=== PATIENT | male | born 1945 | race Caucasian/White ===

== ENCOUNTER 2017-02-22 09:27 | Emergency (ER) | payer MEDICARE, OTHER | END 2017-02-22 09:50 | disposition home or self-care (01) | LOC: BURERS 09:27 | DX: L03.113 Cellulitis of right upper limb (principal); J44.9 Chronic obstructive pulmonary disease, unspecified; F17.210 Nicotine dependence, cigarettes, uncomplicated; Z79.899 Other long term (current) drug therapy | CPT/HCPCS: 99283 ==

== ENCOUNTER 2024-05-27 20:00 | Emergency (ER) | payer MEDICARE, BC, OTHER ==
[2024-05-27] MEDS ORDERED: Bacitracin 1 PK ONE (20:38)
[2024-05-27] MEDS ORDERED: Acetaminophen 500 MG TAB ONE (20:39)
[2024-05-27 21:14] LABS: #Eosinophils 0.3 thou/uL (0.0-0.7); #Lymphocytes 1.9 thou/uL (1.20-3.40); #Monocytes 1.1 thou/uL (0.11-0.59); #Neutrophils 9.6 thou/uL (1.40-6.50); %Basophils 0.3 % (0.0-1.0); %Lymphocytes 14.6 % (21.0-51.0); %Monocytes 8.5 % (0.0-10.0); %Neutrophils 74.6 % (42.0-75.0); Hematocrit 41.3 % (42.0-52.0); Hemoglobin 13.7 g/dL (14.0-18.0); Mean Corpuscular HGB CONC 33.3 g/dL (32.0-36.0); Mean Corpuscular Hemoglobin 32.3 pg (27.0-31.0); Mean Corpuscular Volume 97.1 fl (78.0-98.0); Mean Platelet Volume 7.6 fL (7.4-10.4); Platelet Count 153 10x3/uL (130-400); RBC Distribution Width 13.3 % (11.5-14.5); Red Blood Cell (RBC) Count 4.25 mill/uL (4.70-6.10); White Blood Cell (WBC) Count 12.8 10x3/uL (4.8-10.8)
[2024-05-27 21:27] LABS: INR-International Normal Ratio 1.1; Prothrombin Time 14.4 sec (12.0-14.7)
[2024-05-27 21:36] LABS: ALT (SGPT) 27 U/L (8-55); AST (SGOT) 31 U/L (5-34); Albumin 4.1 g/dL (3.4-4.8); Alkaline Phosphatase 91 U/L (40-110); Anion Gap 14 mmol/L (10-20); BUN (Urea Nitrogen) 27 mg/dL (8.4-25.7); Bilirubin, Total 0.6 mg/dL (0.2-1.2); Calc. Creatinine Clearance 0 mL/min (70-130); Calcium 9.4 mg/dL (7.8-10.44); Carbon Dioxide 23 mmol/L (23-31); Chloride 105 mmol/L (98-107); Estimated GFR 71; Globulin 3.3 g/dL (2.4-3.5); Glucose 94 mg/dL (83-110); Potassium 3.6 mmol/L (3.5-5.1); Protein, Total 7.4 g/dL (5.8-8.1); Sodium 138 mmol/L (136-145)
[2024-05-27] MEDS ORDERED: Boostrix 0.5 ML (Tdap) VIAL (>/=7 yrs of age) ONE (22:47)
== END 2024-05-27 23:35 | disposition short-term general hospital (02) ==
LOC: BURERS 20:00
DX: S32.011A Stable burst fracture of first lumbar vertebra, initial encounter for closed fracture (principal); S11.91XA Laceration without foreign body of unspecified part of neck, initial encounter; S61.012A Laceration without foreign body of left thumb without damage to nail, initial encounter; S61.011A Laceration without foreign body of right thumb without damage to nail, initial encounter; S27.6 Injury of pleura; F17.210 Nicotine dependence, cigarettes, uncomplicated; J44.9 Chronic obstructive pulmonary disease, unspecified; V48.0XXA Car driver injured in noncollision transport accident in nontraffic accident, initial encounter; Y93.89 Activity, other specified; Z23 Encounter for immunization; Z79.51 Long term (current) use of inhaled steroids; Z79.899 Other long term (current) drug therapy
CPT/HCPCS: 36415; 71260; 74177; 80053; 85025; 85610; 85730; 90471; 90715; G0390